=== PATIENT | female | born 1935 | race Caucasian/White ===

== ENCOUNTER 2016-12-28 12:24 | Emergency (ER) | payer OTHER, MEDICARE ==
[2016-12-28 12:42] VITALS: O2SAT 95
--- NOTE | 2016-12-28 14:03 | EDPHY ---
H & P Time Seen by Provider: 12/28/16 13:12 HPI/ROS: CHIEF COMPLAINT: Finger laceration HISTORY OF PRESENT ILLNESS: 81-year-old female presents emergency department with a laceration to her right middle finger after a trip and fall. Patient is [id number], she denies numbness or tingling to this finger. She denies other complaints. No head strike, no neck pain. Smoking Status: Never smoked Physical Exam: GEN: Awake, alert, oriented, no acute distress RESP: nl resp effort MSK: Full active flexion and extension of right middle finger against resistance of MCP, PIP and DIP joint SKIN: 1.5 cm horizontal laceration over PIP joint dorsal aspect right middle finger, superficial, no tendon laceration. Constitutional: Initial Vital Signs Temperature (C) 36.4 C 12/28/16 12:39 Heart Rate 85 12/28/16 12:39 Respiratory Rate 16 12/28/16 12:39 Blood Pressure 131/102 H 12/28/16 12:39 O2 Sat (%) 95 12/28/16 12:39 O2 Delivery Mode Room Air Allergies/Adverse Reactions: No Known Allergies Allergy (Unverified 12/28/16 12:38) Home Medications: Medication Instructions Recorded Simvastatin 12/28/16 MDM/Departure - MDM Imaging Results: Imaging Impressions Finger X-Ray 12/28/16 13:31 Impression: 2 small dorsal radial opaque foreign bodies associated with the patient's soft tissue swelling. Imaging: I viewed and interpreted images myself Procedures: Procedure: Laceration repair. Verbal consent was obtained from the patient. The 1.5 cm laceration on the right middle finger was anesthetized using 1% lidocaine without epinephrine digital block. The wound was carefully irrigated by the emergency department broadband technician. Next, the wound was prepped and draped in sterile fashion and explored to its base with a gloved finger. There were no deep structures involved. No tendon injury was identified. No vascular injury was identified. 2 small rocks removed The wound was repaired with 5.0 Prolene, 6 simple interrupted sutures. The wound repair was simple. The procedure was performed by myself. Tetanus and antibiotic status were addressed. - Depart Disposition: Home, Routine, Self-Care Clinical Impression: Laceration of right middle finger Condition: Good Instructions: Finger Laceration (ED) Additional Instructions: Follow-up with your primary care doctor in 12-14 days for suture removal, return sooner for any signs of infection. Wear splint until your sutures are removed. Referrals: KE SOLIS [Other] - As per Instructions
[2016-12-28 15:00] VITALS: BP 150/88; PULSE 77; RESP 18; TEMP 97.9
== END 2016-12-28 15:08 | disposition home or self-care (01) ==
PROC: 0HQFXZZ Repair Right Hand Skin, External Approach (ICD-10-PCS; principal; 2016-12-28)
DX: S61.222A Laceration with foreign body of right middle finger without damage to nail, initial encounter (principal); W01.0XXA Fall on same level from slipping, tripping and stumbling without subsequent striking against object, initial encounter